=== PATIENT | male | born 1960 | race Caucasian/White ===

== ENCOUNTER → 2024-11-23 | Outpatient (CLI) | payer OTHER ==
--- NOTE | 2024-11-24 09:08 | HMCIMG ---
EXAM: CT Cardiac calcium scoring. CLINICAL HISTORY: Screening. TECHNIQUE: Thin collimated axial CT cardiac images were obtained. A CT scan is done according to ALARA (As Low As Reasonably Achievable). CONTRAST: None. COMPARISON: None provided. FINDINGS: Calcium Score: VESSEL Number of lesions Volume mm3 Equi. Mass/mg Calcium score LM 0 0.00 - 0.00 LAD 4 176.2 - 235.2 LCX 2 10.1 - 16.4 RCA 4 184.5 - 257.1 Total 10 370.8 - 508.7 IMPRESSION: The total calcium score is 508.7. 50th percentile. /[place]
== END | disposition home or self-care (01) ==
LOC: RAH 14:47
PROVIDERS: ATTEND Family Medicine
DX: Z13.6 Encounter for screening for cardiovascular disorders (principal)
CPT/HCPCS: 75571